=== PATIENT | male | born 1960 | race Caucasian/White ===

== ENCOUNTER → 2024-06-18 07:36 | Outpatient (REF) | payer OTHER, SELFPAY | LOC: RAD 07:36 | PROVIDERS: ATTENDING PHYSICIAN Internal Medicine Gastroenterology; FAMILY PHYSICIAN Nurse Practitioner | DX: R10.11 Right upper quadrant pain (principal) | CPT/HCPCS: 78227; A9537; J2805 ==

== ENCOUNTER → 2024-07-28 08:16 | Outpatient (REF) | payer OTHER, SELFPAY | LOC: HWRCS 08:16 | PROVIDERS: ATTENDING PHYSICIAN Internal Medicine Cardiovascular Disease; FAMILY PHYSICIAN Internal Medicine | DX: I25.10 Atherosclerotic heart disease of native coronary artery without angina pectoris (principal); R06.09 Other forms of dyspnea; R07.2 Precordial pain | CPT/HCPCS: 78452; 93017; A9500; J2785 ==

== ENCOUNTER → 2024-08-25 13:04 | Outpatient (REF) | payer OTHER, SELFPAY | LOC: RAD 13:04 | PROVIDERS: ATTENDING PHYSICIAN Student in an Organized Health Care Education/Training Program; FAMILY PHYSICIAN Internal Medicine | DX: M79.662 Pain in left lower leg (principal) | CPT/HCPCS: 93971 ==

== ENCOUNTER → 2024-10-23 09:09 | Outpatient (REF) | payer OTHER, SELFPAY | LOC: HWRCS 09:09 | PROVIDERS: ATTENDING PHYSICIAN Internal Medicine Cardiovascular Disease; FAMILY PHYSICIAN Internal Medicine | DX: R06.09 Other forms of dyspnea (principal) | CPT/HCPCS: 93306 ==

== ENCOUNTER 2025-03-03 06:12 | Day surgery (SDC) | payer OTHER, SELFPAY ==
[2025-03-03] VITALS (13 sets, daily range): BP systolic 150–169; BP diastolic 75–92; BMI 34.5
[2025-03-03] MEDS: HEPARIN 5000 UNITS SC (07:46)
[2025-03-03] MEDS: TYLENOL 1000 MG PO (07:46)
[2025-03-03] MEDS: IC GREEN 2.5 MG IV (08:06)
[2025-03-03] MEDS: NORMOSOL-R/PLASMALYTE-A 1000 IV (08:07)
--- NOTE | 2025-03-03 09:45 | OR.RPT ---
Operative Report
Operative Report
Primary Surgeon: Alea
Assisting: Sandy TORRES
Pre-op Diagnosis: Biliary dyskinesia
Post-op Diagnosis: Chronic cholecystitis
Procedure Performed: Robot assisted laparoscopic cholecystectomy with intraoperative near-infared imaging of major extrahepatic bile ducts
Anesthesia Type: GETA
Specimen / Cultures: Gallbladder
Estimated Blood Loss: 20cc
Complications: None immediate
Operative Findings: Softly distended gallbladder with mild omental adhesions and moderately fibrotic posterior plane
DOS: 03/03/25
Indications: This 64M developed right upper quadrant/epigastric pain and on workup was found to have no cholelithiasis with normal labwork and a normal size common duct. Functional testing revealed an ejection fraction of 29%, consistent with
dyskinesia. Laparoscopic cholecystectomy with robotic assist was elected.
Description of procedure: The patient was placed on the operating table in the supine position. General anesthesia was induced. A time-out was completed verifying correct patient, procedure,
site, positioning, and special equipment prior to beginning this procedure. An orogastric tube was placed. The abdomen was prepped and draped in the usual sterile fashion. A stab incision was made in left upper quadrant and the Veress needle was
inserted. Proper position was confirmed by aspiration and saline meniscus test. The abdomen was insufflated with carbon dioxide to a pressure of 12 mmHg. The patient tolerated insufflation well.
An 8mm optical trocar was then inserted in the left upper quadrant. The laparoscope was inserted and the abdomen inspected. No injuries from initial trocar placement or Veress needle insertion were noted. Additional 8mm trocars were then inserted in
the following locations: above the umbilicus, right mid clavicular line at the level of the umbilicus and 6cm lateral to this on the right. The abdomen was inspected and no abnormalities were found. The table was placed in the reverse Trendelenburg
position with the right side up. The dome of the gallbladder was grasped with an atraumatic grasper and retracted over the dome of the liver. The infundibulum was also grasped with an atraumatic grasper and retracted toward the right lower
quadrant. Mild omental adhesions to the fundus and infundibulum were taken down. This maneuver exposed Calot�s triangle. The peritoneum overlying the gallbladder infundibulum was then incised and the cystic duct and cystic artery identified and
circumferentially dissected so that a clear view of the liver was achieved through a window between the cystic duct an cystic artery. At this time, the only two structures going into the gallbladder were the cystic artery and cystic duct. ICG was
used to visualize the cystic and common ducts and the common duct was protected.
The cystic duct was then doubly clipped and divided and the and cystic artery was controlled with bipolar and divided. Both structures were taken close to the gallbladder. The gallbladder was then dissected from its peritoneal attachments by
electrocautery. The posterior plane was moderately fibrotic. Hemostasis was assured and the gallbladder and contained stones were removed using an endoscopic retrieval bag placed through the umbilical port. The gallbladder was passed off the table
as a specimen. The gallbladder fossa was closely inspected and hemostasis was assured. There was no evidence of bleeding from the gallbladder fossa or cystic artery or leakage of the bile from the cystic duct stump. The umbilical trocar site was
closed at the fascial level laparoscopically with 2-0 PDS. Secondary trocars were removed under direct vision and noted to be hemostatic. The laparoscope was withdrawn and the umbilical trocar removed. The abdomen was allowed to collapse. The skin
was closed with subcuticular sutures of 4-0 monocryl and topical skin adhesive. The orogastric tube was removed.
The patient tolerated the procedure well and was taken to the postanesthesia care unit in stable condition.
The assistance of Sandy TORRES was required due to the complexity of the procedure. During the procedure she assisted with retraction, resection, and closure of the wound.
[2025-03-03] MEDS: ZOFRAN 4 MG IV (10:09)
[2025-03-03] MEDS: DILAUDID 0.5 MG IV ×2 (10:23→10:45)
[2025-03-03] MEDS: BENADRYL 25 MG IV (11:33)
[2025-03-03] MEDS: ROXICODONE 2.5 MG PO (13:03)
== END 2025-03-03 13:37 | disposition home or self-care (01) ==
LOC: SDS 06:12
PROVIDERS: ATTENDING PHYSICIAN Surgery
DX: K80.20 Calculus of gallbladder without cholecystitis without obstruction (principal); K82.8 Other specified diseases of gallbladder; K66.0 Peritoneal adhesions (postprocedural) (postinfection)
CPT/HCPCS: 47563; 88304; A4300